=== PATIENT | male | born 1980 | race Two or more races ===

== ENCOUNTER 2022-07-30 15:39 | Emergency (ER) | payer OTHER ==
[~2022-07-30] VITALS: Ht 175.3 cm; Wt 75.0 kg
[2022-07-30 15:45] VITALS: BP 173/127
[2022-07-30] MEDS ORDERED: BACITRACIN ZINC OINT UDPKT TOP ONE (18:15)
[2022-07-30] MEDS ORDERED: TETANUS, DIPHTHERIA, PERTUSSIS VAC/PF 0.5ML (>10YR OLD) IM ONE (20:00)
[2022-07-30] MEDS ORDERED: CEPH500C2 MT (20:03)
[2022-07-30] MEDS ORDERED: IBUP-2028 MT (20:03)
== END 2022-07-30 21:08 | disposition home or self-care (01) ==
LOC: ER 15:39
DX: S60.512A Abrasion of left hand, initial encounter (principal); S60.511A Abrasion of right hand, initial encounter; X58.XXXA Exposure to other specified factors, initial encounter; Y93.89 Activity, other specified; Y92.89 Other specified places as the place of occurrence of the external cause; Y99.8 Other external cause status
CPT/HCPCS: 73630; 90471; 90715; 99283